=== PATIENT | male | born 1960 | race Hispanic/Latino ===

== ENCOUNTER 2023-08-05 19:01 | Inpatient (IN) | payer OTHER ==
[2023-08-05] MEDS ORDERED: Glucagon 1 MG/ML KIT IM PRN (20:22)
[2023-08-05] MEDS ORDERED: HumaLOG 300 UNITS/3 ML VIAL SC PRN ×2 (20:22)
[2023-08-05] MEDS ORDERED: Ondansetron PF 4 MG/2 ML Vial IVP PRN (20:22)
[2023-08-05 20:27] VITALS: BMI 25.2
[2023-08-05] MEDS: Lactated Ringer's 1,000 ML IV SCH (22:50)
[2023-08-05] MEDS: Insulin Glargine 30 UNITS/0.3 ML VIAL SC SCH (22:57)
[2023-08-05] MEDS: Metoprolol Tartrate 25 MG TAB PO SCH (22:57)
[2023-08-05] MEDS: Sucralfate 1 GM TAB PO SCH (22:58)
[2023-08-06 04:21] LABS: #Basophils 0.03 10x3/uL (0.0-0.2); %Basophils 0.5 % (0.0-1.0); %Eosinophils 9.5 % (0.0-10.0); %Lymphocytes 27.5 % (21.0-51.0); %Monocytes 8.7 % (0.0-10.0); %Neutrophils 53.6 % (42.0-75.0); Hematocrit 37.3 % (42.0-52.0); Hemoglobin 12.9 g/dL (14.0-18.0); Mean Corpuscular HGB CONC 34.6 g/dL (32.0-36.0); Mean Corpuscular Hemoglobin 30.2 pg (27.0-31.0); Mean Corpuscular Volume 87.4 fL (78.0-98.0); Platelet Count 196 10x3/uL (130-400); RBC Distribution Width 13.2 % (11.5-14.5); Red Blood Cell (RBC) Count 4.27 mill/uL (4.70-6.10)
[2023-08-06] MEDS: Levothyroxine Sodium 88 MCG TAB PO SCH (05:13)
[2023-08-06] MEDS: Dextrose 50% Abboject 50 ML SYRINGE SLOW IVP PRN (05:35)
[2023-08-06 06:00] LABS: Anion Gap 10 mmol/L (10-20); BUN (Urea Nitrogen) 17 mg/dL (8.4-25.7); Calc. Creatinine Clearance 87 mL/min (70-130); Calcium 8.9 mg/dL (7.8-10.44); Carbon Dioxide 26 mmol/L (23-31); Chloride 108 mmol/L (98-107); Estimated GFR 98; Glucose 41 mg/dL (80-115); Potassium 3.1 mmol/L (3.5-5.1); Sodium 141 mmol/L (136-145)
[2023-08-06] MEDS: DULoxetine 30 MG CAP PO SCH (11:18)
[2023-08-06] MEDS: Aspirin 81 mg Enteric Coated Tablet PO SCH (11:18)
[2023-08-06] MEDS: Atorvastatin Calcium 40 MG TAB PO SCH (11:18)
[2023-08-06] MEDS: Famotidine 20 MG TAB PO SCH (11:18)
[2023-08-06] MEDS: Glimepiride 4 MG TAB PO SCH (11:18)
[2023-08-06] MEDS: Lisinopril 5 MG TAB PO SCH (11:19)
[2023-08-06] MEDS: Fenofibrate 48 MG TAB PO SCH (11:19)
[2023-08-06] MEDS: Loratadine 10 MG TAB PO SCH (11:20)
[2023-08-06 12:12] VITALS: BMI 25.2
[2023-08-06] MEDS: Baclofen 10 MG TAB PO SCH (22:01)
[2023-08-07] MEDS: Dextrose 5% in Water 1,000 ML IV PRN (06:31)
[2023-08-07] MEDS: Enoxaparin 40 MG (0.4 mL) SYRINGE SC SCH (08:54)
[2023-08-07] MEDS: D5 1/2 NS w/40 mEq KCL 1,000 ML IV SCH (08:59)
[2023-08-07 09:11] LABS: #Basophils 0.03 10x3/uL (0.0-0.2); %Basophils 0.4 % (0.0-1.0); %Eosinophils 10.3 % (0.0-10.0); %Lymphocytes 19.5 % (21.0-51.0); %Monocytes 6.8 % (0.0-10.0); %Neutrophils 62.9 % (42.0-75.0); Hematocrit 41.4 % (42.0-52.0); Hemoglobin 14.3 g/dL (14.0-18.0); Mean Corpuscular HGB CONC 34.5 g/dL (32.0-36.0); Mean Corpuscular Hemoglobin 30.2 pg (27.0-31.0); Mean Corpuscular Volume 87.5 fL (78.0-98.0); Mean Platelet Volume 10.9 fL (7.4-10.4); Platelet Count 204 10x3/uL (130-400); RBC Distribution Width 13.1 % (11.5-14.5); Red Blood Cell (RBC) Count 4.73 mill/uL (4.70-6.10)
[2023-08-07 09:44] LABS: Anion Gap 13 mmol/L (10-20); BUN (Urea Nitrogen) 13 mg/dL (8.4-25.7); Calc. Creatinine Clearance 82 mL/min (70-130); Calcium 9.3 mg/dL (7.8-10.44); Carbon Dioxide 27 mmol/L (23-31); Chloride 103 mmol/L (98-107); Estimated GFR 91; Glucose 122 mg/dL (80-115); Sodium 139 mmol/L (136-145)
[2023-08-07] MEDS: Acetaminophen 325 MG TAB PO PRN (19:21)
[2023-08-07] MEDS ORDERED: Insulin Glargine 30 UNITS/0.3 ML VIAL SC SCH (21:00)
[2023-08-08 04:29] LABS: #Basophils 0.06 10x3/uL (0.0-0.2); %Eosinophils 13.7 % (0.0-10.0); %Lymphocytes 30.4 % (21.0-51.0); %Monocytes 6.9 % (0.0-10.0); %Neutrophils 47.8 % (42.0-75.0); Hematocrit 40.2 % (42.0-52.0); Hemoglobin 13.4 g/dL (14.0-18.0); Mean Corpuscular HGB CONC 33.3 g/dL (32.0-36.0); Mean Corpuscular Hemoglobin 29.6 pg (27.0-31.0); Mean Corpuscular Volume 88.7 fL (78.0-98.0); Mean Platelet Volume 10.7 fL (7.4-10.4); Platelet Count 212 10x3/uL (130-400); RBC Distribution Width 13.2 % (11.5-14.5); Red Blood Cell (RBC) Count 4.53 mill/uL (4.70-6.10)
[2023-08-08 05:00] LABS: Anion Gap 16 mmol/L (10-20); BUN (Urea Nitrogen) 15 mg/dL (8.4-25.7); Calc. Creatinine Clearance 79 mL/min (70-130); Calcium 9.4 mg/dL (7.8-10.44); Carbon Dioxide 21 mmol/L (23-31); Chloride 106 mmol/L (98-107); Estimated GFR 87; Glucose 128 mg/dL (80-115); Potassium 4.3 mmol/L (3.5-5.1); Sodium 139 mmol/L (136-145)
[2023-08-08] MEDS: Lactated Ringer's 1,000 ML IV SCH (08:39)
[2023-08-08] MEDS ORDERED: Insulin Glargine 30 UNITS/0.3 ML VIAL SC SCH (21:00)
[2023-08-09 03:41] LABS: #Basophils 0.03 10x3/uL (0.0-0.2); %Basophils 0.4 % (0.0-1.0); %Eosinophils 6.5 % (0.0-10.0); %Lymphocytes 18.6 % (21.0-51.0); %Monocytes 6.2 % (0.0-10.0); %Neutrophils 68.1 % (42.0-75.0); Hematocrit 36.9 % (42.0-52.0); Hemoglobin 12.7 g/dL (14.0-18.0); Mean Corpuscular HGB CONC 34.4 g/dL (32.0-36.0); Mean Corpuscular Hemoglobin 30.1 pg (27.0-31.0); Mean Corpuscular Volume 87.4 fL (78.0-98.0); Mean Platelet Volume 10.5 fL (7.4-10.4); Platelet Count 185 10x3/uL (130-400); RBC Distribution Width 12.9 % (11.5-14.5); Red Blood Cell (RBC) Count 4.22 mill/uL (4.70-6.10)
[2023-08-09 03:54] LABS: Anion Gap 12 mmol/L (10-20); BUN (Urea Nitrogen) 18 mg/dL (8.4-25.7); Calc. Creatinine Clearance 88 mL/min (70-130); Calcium 9.2 mg/dL (7.8-10.44); Carbon Dioxide 25 mmol/L (23-31); Chloride 106 mmol/L (98-107); Estimated GFR 98; Glucose 137 mg/dL (80-115); Potassium 3.7 mmol/L (3.5-5.1); Sodium 139 mmol/L (136-145)
[2023-08-09] MEDS ORDERED: Insulin Glargine 30 UNITS/0.3 ML VIAL SC SCH (21:00)
[2023-08-10 06:17] LABS: #Basophils 0.03 10x3/uL (0.0-0.2); %Basophils 0.4 % (0.0-1.0); %Eosinophils 9.6 % (0.0-10.0); %Lymphocytes 21.2 % (21.0-51.0); %Monocytes 6.1 % (0.0-10.0); %Neutrophils 62.4 % (42.0-75.0); Hematocrit 39.8 % (42.0-52.0); Hemoglobin 13.8 g/dL (14.0-18.0); Mean Corpuscular HGB CONC 34.7 g/dL (32.0-36.0); Mean Corpuscular Hemoglobin 29.6 pg (27.0-31.0); Mean Corpuscular Volume 85.4 fL (78.0-98.0); Mean Platelet Volume 10.9 fL (7.4-10.4); Platelet Count 200 10x3/uL (130-400); RBC Distribution Width 12.8 % (11.5-14.5); Red Blood Cell (RBC) Count 4.66 mill/uL (4.70-6.10)
[2023-08-10 06:38] LABS: Anion Gap 13 mmol/L (10-20); BUN (Urea Nitrogen) 17 mg/dL (8.4-25.7); Calc. Creatinine Clearance 89 mL/min (70-130); Calcium 9.3 mg/dL (7.8-10.44); Carbon Dioxide 26 mmol/L (23-31); Chloride 104 mmol/L (98-107); Estimated GFR 98; Glucose 116 mg/dL (80-115); Sodium 139 mmol/L (136-145)
[2023-08-10] MEDS: traZODone HCl 50 MG TAB PO SCH (20:35)
[2023-08-10] MEDS: Lorazepam 2 MG/ML VIAL SLOW IVP SCH (20:35)
[2023-08-11] MEDS: Lorazepam 2 MG/ML VIAL SLOW IVP SCH (20:19)
[2023-08-12] MEDS: Lisinopril 2.5 MG TAB PO SCH (16:04)
[2023-08-12] MEDS: Lorazepam 2 MG/ML VIAL SLOW IVP SCH (20:53)
[2023-08-13] MEDS: Lisinopril 2.5 MG TAB PO SCH (09:06)
[2023-08-13 17:02] VITALS: BP 161/93; TEMP 98.3
== END 2023-08-13 18:57 | DRG 64 ==
LOC: INTOOBSV 19:40 → 2SE 19:40 → OBSVTOIN 08-07 08:27
PROVIDERS: ADMIT Internal Medicine; ATTEND Family Medicine
PROC: 4A00X4Z Measurement of Central Nervous Electrical Activity, External Approach (ICD-10-PCS; principal; 2023-08-06)
PROC: 4A00X4Z Measurement of Central Nervous Electrical Activity, External Approach (ICD-10-PCS; 2023-08-11)
DX: I63.9 Cerebral infarction, unspecified (principal); G93.41 Metabolic encephalopathy; G93.6 Cerebral edema; G81.94 Hemiplegia, unspecified affecting left nondominant side; I95.9 Hypotension, unspecified; G47.33 Obstructive sleep apnea (adult) (pediatric); I25.10 Atherosclerotic heart disease of native coronary artery without angina pectoris; I10 Essential (primary) hypertension; E78.5 Hyperlipidemia, unspecified; E03.9 Hypothyroidism, unspecified; G93.89 Other specified disorders of brain; E11.649 Type 2 diabetes mellitus with hypoglycemia without coma; Z98.890 Other specified postprocedural states; Z95.1 Presence of aortocoronary bypass graft; Z87.891 Personal history of nicotine dependence; Z79.82 Long term (current) use of aspirin; Z79.890 Hormone replacement therapy; Z79.899 Other long term (current) drug therapy; Z79.84 Long term (current) use of oral hypoglycemic drugs
CPT/HCPCS: 0042T; 36415; 36416; 36600; 51701; 70450; 70551; 71045; 80048; 80053; 80306; 80307; 81001; 82140; 82533; 82805; 83605; 83735; 84484; 85025; 85610; 85730; 93005; 93306; 93970; 95700; 95711; 95819; 96374; 96375; J1650; J2060; J2405; J2765; J3480; J7070; J7120; J7999; Q9967